=== PATIENT | female | born 1995 | race Caucasian/White ===

== ENCOUNTER 2018-08-21 12:35 | Inpatient (IN) | payer MEDICAID ==
[2018-08-21] MEDS ORDERED: BUTORPHANOL 2 MG INJ IV (14:00)
[2018-08-21] MEDS ORDERED: CARBOPROST 250 MCG INJ IM (14:00)
[2018-08-21] MEDS ORDERED: OXYTOCIN 30 UNITS/LR 500 ML IV ×2 (14:00)
[2018-08-21] MEDS ORDERED: MISOPROSTOL 200 MCG TAB PR (14:00)
[2018-08-21] MEDS ORDERED: IBUPROFEN 600 MG TAB PO (14:00)
[2018-08-21] MEDS ORDERED: METHYLERGONOVINE 0.2 MG INJ IM (14:00)
[2018-08-21] MEDS: LACTATED RINGER'S 1,000 ML IV ×2 (14:13→15:37)
[2018-08-21 14:24] LABS: ADD MAN DIFF? NO
[2018-08-21 14:26] LABS: WHITE BLOOD COUNT 8.9 10^3/ul (4.8-10.8)
[2018-08-21 14:26] LABS: BASOPHILS % 0.3 % (0.0-2.0); EOSINOPHILS # 0.1 10^3/ul (0.0-0.5); EOSINOPHILS % 1.1 % (0.0-7.0); HEMOGLOBIN 11.7 g/dl (12.0-16.0); LYMPHOCYTES # 2.2 10^3/ul (0.8-2.9); LYMPHOCYTES % 24.3 % (18.0-55.0); MEAN CORPUSCULAR HEMOGLOBIN 27.4 pg (29.0-33.0); MEAN CORPUSCULAR HGB CONC 31.6 g/dl (32.0-37.0); MEAN CORPUSCULAR VOLUME 86.7 fl (72.0-104.0); MONOCYTE # 0.8 10^3/ul (0.3-0.9); MONOCYTES % 9.4 % (0.0-13.0); NEUTROPHIL # 5.7 10^3/ul (1.6-7.5); NEUTROPHILS % 64.3 % (30.0-74.0); PLATELET COUNT 189 10^3/UL (140-415); RED BLOOD COUNT 4.27 10^6/ul (4.20-5.40); RED CELL DISTRIBUTION WIDTH 14.6 % (11.5-14.5)
[2018-08-21 14:46] LABS: INR 0.87; PROTIME 11.9 Sec (11.9-14.9); PT RATIO 0.9
[2018-08-21 14:47] LABS: PARTIAL THROMBOPLASTIN TIME 25.4 Sec (23.0-35.0)
[2018-08-21 15:15] LABS: HEPATITIS B SURFACE ANTIGEN NEGATIVE (NEGATIVE)
[2018-08-21] MEDS: OXYTOCIN 30 UNITS/LR 500 ML IV (15:39)
[2018-08-21 16:04] LABS: RAPID PLASMA REAGIN NONREACTIVE (NR)
[2018-08-21 21:12] LABS: HEMOGLOBIN A1C 5.7 % (0-5.9)
[2018-08-22] MEDS: LACTATED RINGER'S 1,000 ML IV ×3 (01:19→10:25)
[2018-08-22] MEDS ORDERED: FENTAnyl 2MCG/ML-ROPIV 0.2% 100 ML (01:57)
[2018-08-22] MEDS ORDERED: NALOXONE (0.4 MG/ML) INJ IV (02:00)
[2018-08-22] MEDS ORDERED: ONDANSETRON 4 MG INJ IV ×2 (02:00→22:30)
[2018-08-22] MEDS ORDERED: DIPHENHYDRAMINE 50 MG INJ IV ×2 (02:00→22:30)
[2018-08-22] MEDS: FENTAnyl 2MCG/ML-ROPIV 0.2% 100 ML BAG EPI ×2 (02:21→12:10)
[2018-08-22] MEDS: MINERAL OIL LIGHT 10 ML VIAL TOP (14:57)
[2018-08-22] MEDS: OXYTOCIN 30 UNITS/LR 500 ML IV ×2 (15:01→19:24)
[2018-08-22] MEDS: LIDOCAINE 1% (MPF) 30 ML INJ INJ (15:06)
[2018-08-22] MEDS: DEXTROSE 5%-LR 1,000 ML IV (22:27)
[2018-08-22] MEDS ORDERED: DIBUCAINE 1% 30 GM OINT TOP (22:30)
[2018-08-22] MEDS ORDERED: CARBOPROST 250 MCG INJ IM (22:30)
[2018-08-22] MEDS ORDERED: MISOPROSTOL 200 MCG TAB PR (22:30)
[2018-08-22] MEDS ORDERED: ACETAMINOPHEN 325 MG TAB PO (22:30)
[2018-08-22] MEDS ORDERED: OXYTOCIN 30 UNITS/LR 500 ML IV (22:30)
[2018-08-22] MEDS ORDERED: ZOLPIDEM 5 MG TAB PO (22:30)
[2018-08-22] MEDS ORDERED: METHYLERGONOVINE 0.2 MG INJ IM (22:30)
[2018-08-22] MEDS: LACTATED RINGER'S 1,000 ML IV* (23:38)
[2018-08-23] MEDS: LANOLIN HPA 1 PKT TOP (00:24)
[2018-08-23] MEDS: BENZOCAINE 20% 56 ML SPRAY TOP (00:24)
[2018-08-23] MEDS: WITCH HAZEL/GLYCERIN PAD PR (00:24)
[2018-08-23] MEDS ORDERED: HYDROCODONE/APAP (5/325) TAB PO (02:00)
[2018-08-23] MEDS: IBUPROFEN 600 MG TAB PO ×3 (05:29→18:00)
[2018-08-23] MEDS: LACTATED RINGER'S 1,000 ML IV* (06:27)
[2018-08-23] MEDS: DEXTROSE 5%-LR 1,000 ML IV (06:27)
[2018-08-23 08:42] LABS: ADD MAN DIFF? NO
[2018-08-23 08:44] LABS: WHITE BLOOD COUNT 16.8 10^3/ul (4.8-10.8)
[2018-08-23 08:44] LABS: BASOPHIL # 0.1 10^3/ul (0.0-0.1); BASOPHILS % 0.3 % (0.0-2.0); EOSINOPHILS # 0.1 10^3/ul (0.0-0.5); EOSINOPHILS % 0.5 % (0.0-7.0); HEMATOCRIT 26.6 % (37.0-47.0); HEMOGLOBIN 8.5 g/dl (12.0-16.0); LYMPHOCYTES % 18.1 % (18.0-55.0); MEAN CORPUSCULAR HEMOGLOBIN 27.4 pg (29.0-33.0); MEAN CORPUSCULAR VOLUME 85.8 fl (72.0-104.0); MEAN PLATELET VOLUME 12.8 fl (7.4-10.4); MONOCYTE # 1.3 10^3/ul (0.3-0.9); MONOCYTES % 7.8 % (0.0-13.0); NEUTROPHIL # 12.2 10^3/ul (1.6-7.5); NEUTROPHILS % 72.6 % (30.0-74.0); PLATELET COUNT 138 10^3/UL (140-415); RED CELL DISTRIBUTION WIDTH 14.8 % (11.5-14.5)
[2018-08-23] MEDS: DOCUSATE SODIUM 100 MG CAP PO ×2 (15:00→21:22)
[2018-08-23] MEDS: SENNA/DOCUSATE NA (8.6MG/50MG) TAB PO ×2 (17:44→17:45)
[2018-08-23] MEDS: POLYSACCHARIDE IRON COMPLEX CAP PO ×2 (17:44→21:22)
[2018-08-24] MEDS: IBUPROFEN 600 MG TAB PO ×3 (00:08→12:45)
[2018-08-24] MEDS: MEASLES,MUMPS,RUBELLA VACCINE INJ SC* (09:00)
[2018-08-24] MEDS: DIPHTH/TET/ACEL PERTUSS (ADULT) 0.5 ML VIAL IM* (09:00)
[2018-08-24] MEDS: POLYSACCHARIDE IRON COMPLEX CAP PO (10:13)
[2018-08-24] MEDS: LANOLIN HPA 1 PKT TOP (10:13)
[2018-08-24] MEDS: DOCUSATE SODIUM 100 MG CAP PO (10:13)
== END 2018-08-24 17:23 | disposition home or self-care (01) | DRG 806 ==
LOC: PP1 08-22 22:24 → L-D 12:35
PROVIDERS: Obstetrics & Gynecology
PROC: 4A1HXCZ Monitoring of Products of Conception, Cardiac Rate, External Approach (ICD-10-PCS; 2018-08-21)
PROC: 10E0XZZ Delivery of Products of Conception, External Approach (ICD-10-PCS; principal; 2018-08-22)
PROC: 0UQGXZZ Repair Vagina, External Approach (ICD-10-PCS; 2018-08-22)
PROC: 0W8NXZZ Division of Female Perineum, External Approach (ICD-10-PCS; 2018-08-22)
DX: O71.4 Obstetric high vaginal laceration alone (principal); O99.13 Other diseases of the blood and blood-forming organs and certain disorders involving the immune mechanism complicating the puerperium; Z37.0 Single live birth; O90.81 Anemia of the puerperium; D72.829 Elevated white blood cell count, unspecified; Z3A.39 39 weeks gestation of pregnancy
CPT/HCPCS: 76815; 83036; 85025; 85610; 85730; 86592; 86850; 86900; 86901; 87340